=== PATIENT | female | born 1930 | race Caucasian/White ===

== ENCOUNTER 2016-11-17 12:09 | Emergency (ER) | payer OTHER, MEDICAID ==
[~2016-11-17] VITALS: Ht 139.7 cm; Wt 72.6 kg
[~2016-11-17 12:09] MED LIST: CELE200C PO; METF-303 PO; OMEP40CA33 PO; REPA2TAB7 PO; TRAM50TA92 PO
[2016-11-17 12:18] VITALS: BP 119/66; PULSE 98; RESP 18; TEMP 98; O2SAT 94
--- NOTE | 2016-11-17 12:22 | NUR ---
Pt placed to ER bed 06. Report given to APRIL Chan.
--- NOTE | 2016-11-17 12:22 | NUR ---
Heena ponce in EDM - 11/17/16 at 1225 by YI Pt placed to bed 03. Report given to APRIL Hayes.
--- NOTE | 2016-11-17 12:22 | NUR ---
Heena ponce in ED - 11/17/16 at 1226 by [email or web address] Pt placed to [facility] . Report given to APRIL Hayes.
--- NOTE | 2016-11-17 12:34 | NUR ---
Patient, awake, alert and oriented x 4, BIB self from home for cough x 2 days. Upon assessment, patient presents persistent cough x two days. Patient denies chills, fever, shortness of breath and chest pain. No other complaints/injuries per patient, none noted.
--- NOTE | 2016-11-17 12:35 | NUR ---
Dr. Salgado at bedside examining patient.
[2016-11-17 12:57] VITALS: TEMP 98
--- NOTE | 2016-11-17 12:57 | NUR ---
shop service technician at bedside. Pt tolerating well. No signs of distress, vss.
[2016-11-17 13:12] LABS: WHITE BLOOD COUNT (AUTO) 9.1 K/uL (4.8-10.8)
[2016-11-17 13:13] LABS: ANION GAP 11 (5-15); CALCIUM 9.6 mg/dL (8.4-11.0); CHLORIDE 108 mmol/L (98-107); CREATININE 0.72 mg/dL (0.55-1.30); GLUCOSE 173 mg/dL (70-99); HEMOGLOBIN 13.8 g/dL (12.0-16.0); MEAN CORPUSCULAR HEMOGLOBIN 30 pg (27-31); MEAN CORPUSCULAR HGB CONC 33 % (32-36); MEAN CORPUSCULAR VOLUME 91 fL (79.0-98.0); NEUTROPHILS % (AUTO) 74.4 % (40.0-70.0); PLATELET COUNT (AUTO) 290 K/uL (130-430); POTASSIUM 3.7 mmol/L (3.5-5.1); RED BLOOD CELL COUNT(AUTO) 4.61 MIL/uL (4.2-6.2); RED CELL DISTRIBUTION WIDTH 14.1 % (9.0-15.0); SODIUM SERUM 146 mmol/L (136-145); UREA NITROGEN, BLOOD 19 mg/dL (8-21)
[2016-11-17 13:14] LABS: BASOPHILS % (AUTO) 0.2 % (0.0-2.0); EOSINOPHILS # (AUTO) 0.1 K/uL (0.0-0.4); EOSINOPHILS % (AUTO) 0.7 % (0.0-4.0); LYMPHOCYTES # (AUTO) 1.6 K/uL (1.0-5.5); LYMPHOCYTES % (AUTO) 17.9 % (20.5-51.5); MONOCYTES # (AUTO) 0.6 K/uL (0.0-1.0); MONOCYTES % (AUTO) 6.8 % (1.7-9.3); NEUTROPHILS # (AUTO) 6.8 K/uL (1.8-7.7)
[2016-11-17 13:17] LABS: ALANINE AMINOTRANSFERASE 16 U/L (12-78); ALBUMIN 3.5 g/dL (3.4-4.8); ASPARTATE AMINOTRANSFERASE 17 U/L (10-37); PROTHROMBIN TIME 10.3 SECS (9.5-12.5); TOTAL BILIRUBIN 0.3 mg/dL (0.0-1.0)
[2016-11-17] MEDS ORDERED: cefTRIAXone 1 GM VIAL IM ONE (14:00)
[2016-11-17] MEDS ORDERED: LevALBUTEROL HCL 1.25 MG/0.5 ML *CONC.* VIAL.NEB (XOPENEX CONC.) INH ONE (14:00)
--- NOTE | 2016-11-17 14:00 | NUR ---
Patient resting quietly. No acute distress noted. Vital signs within normal range.
[2016-11-17] MEDS ORDERED: MAGNESIUM CITRATE 300 ML ORAL SOLUTION PO ONE (14:15)
--- NOTE | 2016-11-17 14:20 | NUR ---
RT at bedside administering breathing treatment.
--- NOTE | 2016-11-17 14:20 | NUR ---
Pt medicated per MD orders. No signs of adverse reaction to medication noted.
[2016-11-17 14:50] VITALS: BP 137/71; PULSE 84; RESP 18; O2SAT 100
--- NOTE | 2016-11-17 14:50 | NUR ---
Patient given written and verbal discharge instructions and verbalizes understanding. ER MD discussed with patient the results and treatment provided. Patient in stable condition. ID arm band removed. IV catheter removed intact and dressing applied, no active bleeding. Rx of Augmentin given. Patient educated on pain management and to follow up with PMD. Pain Scale 0/10. Opportunity for questions provided and answered.
== END 2016-11-17 14:50 | disposition home or self-care (01) ==
LOC: SED 12:09
DX: J40 Bronchitis, not specified as acute or chronic (principal); K59.00 Constipation, unspecified; E11.9 Type 2 diabetes mellitus without complications; K21.9 Gastro-esophageal reflux disease without esophagitis; Z88.6 Allergy status to analgesic agent
CPT/HCPCS: 36415; 71010; 74000; 80053; 83880; 84484; 85025; 85610; 93005; 94640; 96372; 99285; J0696